=== PATIENT | male | born 1950 | race Caucasian/White ===

== ENCOUNTER 2016-10-29 16:08 | Emergency (ER) | payer OTHER, BC ==
[~2016-10-29] VITALS: Ht 177.8 cm; Wt 121.3 kg
[~2016-10-29 16:08] MED LIST: BENICAR; ZETIA
[2016-10-29] MEDS ORDERED: PERCOCET 5/31 TABLET PO (17:50)
[2016-10-29] MEDS ORDERED: KEFLEX500 MG PO (17:50)
[2016-10-29 18:22] VITALS: BP 168/102
[2016-10-29] MEDS ORDERED: ULTRAM50 MG PO (18:26)
== END 2016-10-29 18:32 | disposition home or self-care (01) ==
LOC: EME 16:08
PROC: 0HQGXZZ Repair Left Hand Skin, External Approach (ICD-10-PCS; principal; 2016-10-29)
DX: S62.635B Displaced fracture of distal phalanx of left ring finger, initial encounter for open fracture (principal); W20.8XXA Other cause of strike by thrown, projected or falling object, initial encounter; I10 Essential (primary) hypertension; E78.00 Pure hypercholesterolemia, unspecified
CPT/HCPCS: 73140; 99281; 99284; S0020